=== PATIENT | male | born 1985 | race Caucasian/White ===

== ENCOUNTER 2021-03-14 19:45 | Emergency (ER) | payer MEDICAID ==
[~2021-03-14] VITALS: Ht 170.2 cm; Wt 84.8 kg
[2021-03-14 20:03] VITALS: BP 135/72
[2021-03-14] MEDS ORDERED: IBUPROFEN 400 MG TABLET ONE (20:26)
[2021-03-14] MEDS ORDERED: IBUPROFEN 400 MG TABLET PO ONE (20:30)
== END 2021-03-14 20:51 | disposition home or self-care (01) ==
LOC: ER 19:51
DX: U07.1 COVID-19 (principal); J12.82 Pneumonia due to coronavirus disease 2019
CPT/HCPCS: 71045-TC